=== PATIENT | male | born 1955 | race Caucasian/White ===

== ENCOUNTER 2021-02-08 19:05 | Emergency (ER) | payer BC, SELFPAY ==
[2021-02-08 19:18] VITALS: BP 146/76; PULSE 87; RESP 18; TEMP 36.6; O2SAT 100; BMI 30.9
[2021-02-08 19:24] VITALS: BP 146/76; PULSE 87; RESP 18; TEMP 36.6; O2SAT 100
--- NOTE | 2021-02-08 19:52 | HMH.EDUTC ---
[facility] [place] Condition [place]: Good <Franki Ferrell - Last Filed: 02/08/21 20:25> <Denis Mcdermott - Last Filed: 02/09/21 17:55> Clinical Impression: Blood in right ear canal Disposition: Home, Self-Care Instructions: How to Instill Ear Drops Additional Instructions: see dr nelson in am Referrals: Provider,MD Alok [Primary Care Provider] - Mulugeta Nelson MD [Staff Physician] - Medical Decision Making - Medical Records Medical records reviewed: Yes: I reviewed the patient's medical records. - Erich Inquiry Pt receiving controlled substance: No - Lab Data Lab results reviewed: Yes: I reviewed the patient's lab results. - Physician Consults Physician Consulted: bhavin Reason -: Pt condition <Franki Ferrell - Last Filed: 02/08/21 20:25> - Medical Records Medical records reviewed: Yes: I reviewed the patient's medical records. - Erich Inquiry Pt receiving controlled substance: No - Lab Data Lab results reviewed: Yes: I reviewed the patient's lab results. <Denis Mdcermott - Last Filed: 02/09/21 17:55> Vital Signs: 02/08/21 19:18 02/08/21 19:24 02/08/21 20:01 Temperature 97.9 F 97.9 F 99.2 F Temperature Source Oral Oral Pulse Rate 87 Pulse Rate [Left] 87 60 Respiratory Rate 18 18 16 Blood Pressure 146/76 H Blood Pressure [Right Arm] 146/76 H 164/82 H Blood Pressure Mean [Right Arm] 99 109 Blood Pressure Source [Right Arm] Automatic Cuff Blood Pressure Position [Right Arm] Sitting 02 Sat by Pulse Oximetry 100 97 Oxygen Delivery Method Room Air Orders (Tests/Meds): ED MEDICATIONS Discontinued Medications Generic Name Dose Route Start Last Admin Trade Name Freq PRN Reason Stop Dose Admin Neomycin/Polymyxin/Hydrocortisone 10 ml 02/08/21 20:08 02/08/21 20:11 Jobpguge-Furmmerfg-Iy Otic Susp 10ml OT 02/08/21 20:09 2 drops ONCE ONE Administration [facility] [place] - General Source of Information: Medical Record - History of Present Illness Onset (ago): hour(s) Associated symptoms: denies other symptoms <Franki Ferrell - Last Filed: 02/08/21 20:25> - General Mode of Arrival: Ambulatory Source of Information: Patient Limitations: No Limitations Description of Symptoms (Recalled from Triage Doc. by RN): Bleeding from ear right since 11am HEENT Symptoms (Recalled from RN notes): Yes Resp Symptoms (Recalled from RN notes): No Skin Symptoms (Recalled from RN notes): No MS Symptoms (Recalled from RN notes): No Functional Status (Recalled from RN notes): wnl - History of Present Illness Provider Complaint: He states that he has had bleeding from his right ear for the past 7 hours. He was cleaning his right ear with a q-tip when his bleeding started. He takes a baby aspirin daily. - Worker's Comp Is this a Worker's Comp case?: No <Denis Mcdermott - Last Filed: 02/09/21 17:55> - General Stated complaint: R Ear bleeding Time Seen by Provider: 02/08/21 19:35 - Related Data Home Medications Medication Instructions Recorded Confirmed Aspirin 81 mg PO DAILY 06/20/18 02/09/21 carvediloL [Carvedilol 12.5mg Tab] 12.5 mg PO DAILY 06/20/18 02/09/21 esomeprazole magnesium 40 mg 40 mg PO DAILY cap 02/09/21 02/09/21 capsule,delayed release Allergies Allergy/AdvReac Type Severity Reaction Status Date / Time No Known Allergies Allergy Verified 02/08/21 19:16 [facility] History - Hepatitis A Screen Drug use history?: No High risk sexual behaviors?: No History of sexually transmitted infection?: No Currently employed?: No Childcare worker?: No Do you have indoor plumbing?: Yes Do you have electricity?: Yes I have reviewed the patient's past medical history: Yes Medical History: Reports:: Cancer Denies:: Diabetes Mellitus Type 1, Diabetes Mellitus Type 2 - Social History Alcohol Intake: never Occupational Status: other <Denis Mcdermott - Last Filed: 02/09/21 17:55> - Hepatitis A Screen Attestation statement:: This patient has b
[2021-02-08 20:01] VITALS: BP 164/82; PULSE 60; RESP 16; TEMP 37.3; O2SAT 97; BMI 31.1
== END 2021-02-08 20:21 | disposition home or self-care (01) ==
LOC: UTC 19:54 → ER 19:57
PROVIDERS: Emergency Provider Emergency Medicine
DX: S00.411A Abrasion of right ear, initial encounter (principal); W22.8XXA Striking against or struck by other objects, initial encounter; Y92.019 Unspecified place in single-family (private) house as the place of occurrence of the external cause
CPT/HCPCS: 99282

== ENCOUNTER 2021-02-09 10:21 | Day surgery (SDC) | payer BC, SELFPAY ==
[2021-02-09] VITALS (9 sets, daily range): BP systolic 132–185; BP diastolic 67–91; PULSE 59–67; RESP 12–18; TEMP 36.1–36.4; O2SAT 93–99; BMI 31.1
--- NOTE | 2021-02-09 11:26 | P.PN_ITS ---
[facility] Anesthesia Checklist - Patient Identification Patient Identification: Arm Band - Structural Data Admitted From: Home Planned Operative Procedure/s: Microdermabrasion R ear Consent for Planned Operative Procedure(s) Verified: Yes - NPO Status Verified Time NPO: 00:00 - Airway Assessment C-Spine Mobility Assessed: Yes TMJ Mobility Assessed: Yes (Full opening can cause exacerbation of trigeminal neuralgia) Dentition: Good Dentition - Neurological Assessment Level of Consciousness: Awake, Alert Hx Seizures: No Numbness or tingling in extremities: No - Anesthesia Plan Anesthesia Risk discussed: Yes Anesthesia Plan: Patient unable to respond/answer ASA Class: III Anesthesia Type: General [facility] History I have reviewed the patient's past medical history: Yes Medical History: Reports:: Cancer, Hypertension Denies:: Diabetes Mellitus Type 1, Diabetes Mellitus Type 2 *Have you ever received a pneumonia vaccine?: No *Have you received a flu vaccine this season?: No Other Medical History: Reports: Other (Trigeminal neuralgia) Anesthesia experience/problems:: None Other Surgeries: Yes: Skin Cancer Excision, Other - *Social History Smoking Status: Never smoker Alcohol Intake: never Substance Use Type: denies use *Occupational Status:: other *Travel in the last 8 weeks: None Family Hx:: Hyperlipidemia, Hypertension
--- NOTE | 2021-02-09 12:41 | P.PN_ITS ---
[facility] Anesthesia Record Part I Intake, IV Amount: 700 Estimated blood loss (mL): 0 Urine output (mL): 0 Blood Pressure: 148/81 SaO2: 95 Pulse Rate: 61 Respiratory Rate: 12 Temperature: 97 F Patient is:: Awake, Stable Stable to PACU at:: 12:35
--- NOTE | 2021-02-09 13:02 | P.OP_ITS ---
Date of procedure: 02/09/21 Pre-op Diagnosis:: 1. Bleeding from right ear 2. Blockage in the right ear 3. Right external otitis Post-op Diagnosis:: same Procedure performed:: 1. microdebridement of right external otitis with removal of the impacted debris right ear 2. Control of bleeding right ear Surgeon:: Mulugeta Neslon MD [employer] MA[employer]GER:: Lasha Preston Anesthesia: GETA Estimated blood loss (mL): 3 Operative findings:: same Operative note:: With the patient under general anesthesia using the operating microscope for all the procedure the right ear was prepped and draped. The right ear was filled with impacted debris and dried blood. As well as a small amount of active bleeding. Using irrigation techniques and alligator forceps all of the debris was cleared from the right ear canal. There was an area of fresh bleeding which was thoroughly inspected and agreed and irrigated. There appeared to be a small polyp at the site of the active bleeding. Using topical epinephrine the bleeding was stopped in entirety. Blood loss was less than 3 cc. The ear was then thoroughly irrigated again, and Surgicel snow was placed on the polypoid area where the active bleeding had been and the bleeding was stopped completely. Ciprodex drops were placed. And a cottonoid dressing was placed in the external ear. The Patient was sent to recovery in good general condition. Condition: stable Disposition: PACU Complications:: none
--- NOTE | 2021-02-10 07:54 | P.PN_ITS ---
[facility] Anesthesia Record Part II Discharge Time: 13:05 Destination: Surgical Day Care (OP Surgery) PACU nurse assessment reviewed?: Yes Patient Condition:: Good Anesthesia Complications:: None Swallowing reflex intact?: Yes Cyanosis?: No Blood Pressure: 152/77 Pulse Rate: 63 Temperature: 97 F Mental Status: Alert & Oriented Pain level:: 0 Nausea and/or vomitting:: None Intake, IV Amount: 0
[2021-02-10 07:55] VITALS: BP 152/77; PULSE 63; TEMP 36.1
== END 2021-02-09 13:43 | disposition home or self-care (01) ==
LOC: OR 10:24
PROVIDERS: PCP Internal Medicine; Visit Provider Otolaryngology
PROC: (CPT 69205; principal; 2021-02-09 12:45)
DX: H74.41 Polyp of right middle ear (principal); H60.91 Unspecified otitis externa, right ear; H92.21 Otorrhagia, right ear; Z85.9 Personal history of malignant neoplasm, unspecified; I10 Essential (primary) hypertension; Z83.438 Family history of other disorder of lipoprotein metabolism and other lipidemia; Z82.49 Family history of ischemic heart disease and other diseases of the circulatory system; K21.9 Gastro-esophageal reflux disease without esophagitis; Z79.899 Other long term (current) drug therapy
CPT/HCPCS: 69205; 69990; 96374; 96375; U0003